=== PATIENT | male | born 1985 | race Caucasian/White ===

== ENCOUNTER → 2019-05-26 07:26 | Outpatient (BNVA) | payer MEDICARE, MEDICAID, SELFPAY | PROVIDERS: Family Provider Internal Medicine; PCP Internal Medicine; Visit Provider Specialist | DX: G43.711 Chronic migraine without aura, intractable, with status migrainosus (principal); G35 Multiple sclerosis; F17.210 Nicotine dependence, cigarettes, uncomplicated | CPT/HCPCS: 64615; 99213; J0585 ==

== ENCOUNTER → 2019-06-15 07:40 | Outpatient (BNVA) | payer MEDICARE, MEDICAID, SELFPAY | PROVIDERS: Family Provider Internal Medicine; PCP Internal Medicine; Visit Provider Specialist | DX: G35 Multiple sclerosis (principal); F17.210 Nicotine dependence, cigarettes, uncomplicated | CPT/HCPCS: 96374; 96415; 99213; J1200; J2350; J2930; J7050 ==

== ENCOUNTER 2019-06-19 23:22 | Emergency (ER) | payer MEDICARE, MEDICAID, SELFPAY ==
[2019-06-19 23:23] VITALS: BP 130/76; PULSE 82; RESP 18; TEMP 36.6; O2SAT 97; BMI 19.3
--- NOTE | 2019-06-19 23:54 | ED_ITS ---
Entered by Debora Wagner, acting as scribe for Pravin Traore DO Jun 19, 2019 23:22 HPI - Chest Pain General: Chief Complaint: General Medical Stated Complaint: CHEST PAIN Time Seen by Provider: 06/19/19 23:45 History of Present Illness: HPI narrative: 34 yo m came to the er [facility] for chest pain. Onset was today. Pt states that his right side is hurting, hurts when he coughs. Pt states that the pain is under his shoulder blade and rib cage. Pt states that he is having trouble breathing when he exhales that it hurts. Pt states that when you press on the location at where he hurts it doesnt hurt but when he moves that is when it hurts. 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) Timing of current episode: constant Prior episodes: No Onset: during exertion Pain location: other (under rt shoulder blade) Quality: sharp Relieving factors: nothing Associated symptoms: Reports no associated symptoms; Deny abdominal pain, dyspnea, fever(s), nausea, palpitations or vomiting Treatment prior to arrival: aspirin (325) Risk Factors: Coronary artery disease risk factors: none Thoracic aortic dissection risk factors: none Review of Systems General: Reports: other (negative unless marked) Const: Denies: fever or chills Eyes: Denies: change in vision or blurry vision ENMT: Denies: painful swallowing, swelling of lips/tongue, post nasal drip or facial/sinus pain Card: Reports: chest pain and shortness of breath on exertion; Denies: palpitations, irregular heart rhythm, edema, swelling of feet/ankles or shortness of breath when lying down Resp: Reports: non-productive cough; Denies: shortness of breath, productive cough or wheezing GI: Denies: abdominal pain, nausea, vomiting, rectal pain, blood in stool or black tarry stool : Denies: difficulty urinating, painful urination, urinary frequency, urinary urgency or blood in urine Musc: Denies: neck pain, back pain, redness or joint warmth Skin/Breast: Denies: rash, itching or redness Neuro: Denies: headache, dizziness or vertigo Psych: Denies: anxiety PFSH ED PFSH: Social History Smoking and tobacco status: current every day smoker cigarettes Packs smoked per day: 1 Smoking risk assessment/counseling performed?: Yes Alcohol intake: current Alcohol intake frequency: holidays/special occasions only History of recent travel: No Physical Exam Const: GENERAL APPEARANCE: well developed ORIENTATION/CONSCIOUSNESS: Yes oriented to person, Yes oriented to place and Yes oriented to time HENMT: COMMON NORMALS: normocephalic, external ears normal and external nose normal HEAD & SCALP: normocephalic; no scalp tenderness FACE & SINUS: normal facial exam NOSE: external nose normal and no nasal discharge EXTERNAL EAR: Yes external ears normal MOUTH: tongue normal Eye: COMMON NORMALS: PERRL, EOMs intact bilaterally and conjunctivae normal EYELID: eyelids normal CONJUNCTIVA: Yes conjunctivae normal PUPIL: Yes PERRL Neck/C-Spine: COMMON NORMALS: full ROM GENERAL: No tracheal deviation Chest: COMMONS NORMALS: inspection of chest normal CHEST: Yes tenderness Resp: COMMON NORMALS: clear to auscultation bilaterally EFFORT & INSPECTION: No tachypneic, No respiratory distress, No retractions, No uses accessory muscles and No tracheal deviation AUSCULTATION: clear to auscultation bilaterally, no rhonchi, no wheezes and lung sounds not diminished Cardio: COMMON NORMALS: regular rate and regular rhythm RATE: regular rate RHYTHM: regular rhythm HEART SOUNDS: no murmurs PERIPHERAL PULSES: radial pulses present GI: INSPECTION: No abdominal distension AUSCULTATION: No hyperactive bowel sounds and No hypoactive bowel sounds PALPATION: No guarding and No rigid PERCUSSION: no dullness to percussion and no tympanic to percussion : COMMON NORMALS: Yes no CVA tenderness BLADDER/KIDNEY EXAM: Yes no CVA tenderness Back/Pelvis: COMMON NORMALS: no CVA tenderness Neuro: SENSORIUM/ORIENTATION: Yes oriented to person, Yes oriented to place and Yes oriented to time Psych: COMMON NORMALS: mental status grossly normal Skin: COMMON NORMALS: no rashes or lesions noted GENERAL SKIN EXAM: no rashes or lesions noted Course Vital Signs: Vital signs: Vital Signs Temperature 98 F 06/19/19 23:23 Pulse Rate 88 06/20/19 00:39 Respiratory Rate 16 06/20/19 00:39 Blood Pressure 130/76 06/20/19 00:39 Pulse Oximetry 99 06/20/19 00:39 MDM - Chest Pain MDM Narrative: Medical decision making narrative: 34-year-old male with multiple sclerosis. He presents with normal vitals, heart rate of 65, saturations of 98%. He has pleuritic right-sided chest pain that is somewhat reproducible on exam. It is reproduced by deep breath. His chest x-ray is negative for infiltrate, or pneumothorax, etc. His white cell count is 8.7. Troponin is negative. EKG shows a sinus rhythm with sinus arrhythmia, mild right axis deviation, and no acute ST change. Lab Data: Labs: Lab Results 06/19/19 06/19/19 06/19/19 Range/Units 23:15 23:15 23:15 WBC 8.7 (4.0-10.0) 10^3/ uL RBC 5.44 H (4.1-5.3) 10^6/u L Hgb 16.4 (11.7-16.6) g/dL Hct 47.9 (42.0-52.0) % MCV 88.1 (80-94) fL MCH 30.1 (28.0-34.0) pg MCHC 34.2 (30.0-36.0) g/dL RDW 11.9 L (12.1-15.1) % Plt Count 264 (130-400) 10^3/c mm MPV 11.0 H (7.4-10.4) fL Neut % (Auto) 52.9 % Lymph % (Auto) 32.5 % [place] % (Auto) 9.9 % Eos % (Auto) 4.1 % Baso % (Auto) 0.3 % Neut # (Auto) 4.6 (1.8-7.7) 10^3/u L Lymph # (Auto) 2.8 (0.8-4.8) 10^3/u L [place] # (Auto) 0.9 (0.2-0.9) 10^3/u L Eos # (Auto) 0.4 (0.0-0.8) 10^3/u L Baso # (Auto) 0.0 (0.0-0.1) 10^3/u L Nucleated RBC % (a uto) 0 % Nucleated RBCs # 0.0 /100WBC Sodium 138 (136-145) mmol/L Potassium 4.0 (3.5-5.1) mmol/L Chloride 99 (98-107) mmol/L Carbon Dioxide 28 (22-29) mmol/L Anion Gap 15.0 (5-19) BUN 9 (6-20) mg/dL Creatinine 0.9 (0.7-1.2) mg/dL GFR Calculation 95.5 (90-130) mL/min Glucose 90 (65-115) mg/dL Calcium 10.2 (8.5-10.5) mg/dL Total Bilirubin 0.2 (0.15-1.2) mg/dL AST 17 (0-40) U/L ALT 13 (0-41) U/L Alkaline Phosphata se 112 (40-130) IU/L Troponin T Baselin e 6 (0-15) ng/mL Total Protein 8.0 (6.6-8.7) g/dL Albumin 4.0 (3.5-5.2) g/dL Globulin 4.0 (1.3-4.6) g/dL Discharge Plan Discharge Prescriptions: No Action cholecalciferol (vitamin D3) 2,000 unit tablet 2,000 unit PO QDAY RF: 0 nortriptyline 25 mg capsule 25 mg PO QDAY RF: 0 venlafaxine [Effexor XR] 75 mg capsule,extended release 24hr 75 mg PO QAM RF: 0 promethazine 25 mg tablet 25 mg PO Q6H PRNRF: 0 glatiramer [Glatopa] 20 mg/mL syringe 20 mg SUBCUT QDAY RF: 0 albuterol sulfate [Ventolin HFA] 90 mcg/actuation HFA aerosol inhaler 2 puff INHALATION Q6H PRNRF: 0 Ocrevus 30 mg/mL solution 300 mg IVP ONCE Qty: 1 RF: 0 Coding Level of Care Code ED Trailer Technician for Chg Fwd The documentation recorded by the Bernard bucio Stephanie Lyn, accurately reflects the service I personally performed and the decisions made by León bruno Jeremy John, DO Jun 19, 2019 23:22
--- NOTE | 2019-06-20 00:13 | XR_ITS ---
WS: [id number] CHEST XRAY TECHNIQUE: Portable chest. CLINICAL INFORMATION: cp COMPARISON: None. FINDINGS: Heart: Normal cardiac silhouette. Lungs: Lungs are clear. No consolidation or pleural effusion. Calcific granuloma left upper lobe. Bones: Normal visualized bony structures. XR/XR chest 1V portable [id number] IMPRESSION: Normal chest
--- NOTE | 2019-06-20 00:13 | ECG_ITS ---
Measurements Intervals [place] Rate: 79 P: 35 ME: 152 QRS: 150 QRSD: 101 T: 54 QT: 356 QTc: 409 SINUS RHYTHM WITH SINUS ARRHYTHMIA POSSIBLE RIGHT VENTRICULAR HYPERTROPHY [SOME/ALL OF: PROMINENT R IN V1, LATE TR TRANSITION, RAD, ANGELITA, SSS] Compared to ECG 09/03/2014 18:39:10 No significant changes Electronically Signed On 06-20-2019 15:33:00 EXPANDER MACHINE OPERATOR by Magalis Shin M.D. [email or web address]
[2019-06-20 00:33] LABS: Basophils % 0.3 %; Eosinophils # 0.4 10^3/uL (0.0-0.8); Eosinophils % 4.1 %; Hematocrit 47.9 % (42.0-52.0); Hemoglobin 16.4 g/dL (11.7-16.6); Lymphocytes # 2.8 10^3/uL (0.8-4.8); Lymphocytes % 32.5 %; Mean Corpuscular HGB Conc 34.2 g/dL (30.0-36.0); Mean Corpuscular Hemoglobin 30.1 pg (28.0-34.0); Mean Corpuscular Volume 88.1 fL (80-94); Monocytes # 0.9 10^3/uL (0.2-0.9); Monocytes % 9.9 %; Neutrophils # 4.6 10^3/uL (1.8-7.7); Neutrophils % 52.9 %; Nucleated Red Blood Cells % 0 %; Platelet Count 264 10^3/cmm (130-400); Red Blood Count 5.44 10^6/uL (4.1-5.3); Red Cell Distribution Width 11.9 % (12.1-15.1); White Blood Count 8.7 10^3/uL (4.0-10.0)
[2019-06-20] MEDS: ondansetron 2 mg/ML SDV 2 mL 4 MG IVP (00:35)
[2019-06-20 00:36] VITALS: RESP 18; O2SAT 99
[2019-06-20] MEDS: morphine 4 mg/mL SDV 1 mL IVP (00:36)
[2019-06-20 00:39] VITALS: BP 130/76; PULSE 88; RESP 16; O2SAT 99
[2019-06-20 00:40] LABS: Alanine Aminotransferase 13 U/L (0-41); Alkaline Phosphatase 112 IU/L (40-130); Aspartate Amino Transferase 17 U/L (0-40); Blood Urea Nitrogen 9 mg/dL (6-20); Calcium 10.2 mg/dL (8.5-10.5); Carbon Dioxide 28 mmol/L (22-29); Chloride 99 mmol/L (98-107); Glomerular Filtration Rate 95.5 mL/min (90-130); Glucose 90 mg/dL (65-115); Sodium 138 mmol/L (136-145); Total Bilirubin 0.2 mg/dL (0.15-1.2)
[2019-06-20 00:55] LABS: Troponin(5th) Baseline 6 ng/mL (0-15)
[2019-06-20 01:29] VITALS: BP 130/76; PULSE 67; RESP 16; O2SAT 99
[2019-06-20] MEDS: ketorolac 30 mg/mL INJ IVP (01:35)
[2019-06-20 01:40] VITALS: BP 130/76; PULSE 68; RESP 16; O2SAT 98
== END 2019-06-20 01:41 | disposition home or self-care (01) ==
PROVIDERS: Emergency Provider Emergency Medicine; Family Provider Internal Medicine; PCP Internal Medicine
DX: R07.9 Chest pain, unspecified (principal); R05 Cough; R06.02 Shortness of breath; G35 Multiple sclerosis; F17.210 Nicotine dependence, cigarettes, uncomplicated
CPT/HCPCS: 71045; 80053; 84484; 85025; 93005; 96374; 96375; 99283; 99284; J1885; J2270; J2405

== ENCOUNTER 2019-06-29 07:38 | Outpatient (CLI) | payer MEDICARE, MEDICAID, SELFPAY ==
[2019-06-29] MEDS: acetaminophen 500 mg Tablet 1000 MG PO (08:51)
[2019-06-29] MEDS: diphenhydrAMINE 50 mg/mL SDV 1mL 25 MG IVP (08:52)
== END 2019-06-29 07:39 | disposition home or self-care (01) ==
LOC: NSACUTE 07:43
PROVIDERS: Family Provider Internal Medicine; PCP Internal Medicine; Visit Provider Specialist
DX: G35 Multiple sclerosis (principal)
CPT/HCPCS: 96374; 96375; 96413; 96415; J1200; J2350; J2930; J7050

== ENCOUNTER → 2019-08-25 07:41 | Outpatient (BNVA) | payer MEDICARE, MEDICAID, SELFPAY | PROVIDERS: Family Provider Internal Medicine; PCP Internal Medicine; Visit Provider Specialist | DX: G43.711 Chronic migraine without aura, intractable, with status migrainosus (principal); G35 Multiple sclerosis; F17.210 Nicotine dependence, cigarettes, uncomplicated | CPT/HCPCS: 64615; 99213; J0585 ==

== ENCOUNTER → 2019-12-02 07:40 | Outpatient (BNVA) | payer MEDICARE, MEDICAID, SELFPAY | PROVIDERS: Family Provider Internal Medicine; PCP Internal Medicine; Visit Provider Specialist | DX: G43.711 Chronic migraine without aura, intractable, with status migrainosus (principal); G35 Multiple sclerosis | CPT/HCPCS: 64615; 99213; J0585 ==

== ENCOUNTER 2019-12-08 04:23 | Emergency (ER) | payer MEDICARE, MEDICAID, SELFPAY ==
[2019-12-08 04:24] VITALS: BP 113/72; PULSE 60; RESP 16; O2SAT 98
--- NOTE | 2019-12-08 04:26 | W.ED.GENADLT ---
HPI - General Adult General: Stated complaint: TOOTH PAIN Time Seen by Provider: 12/08/19 04:24 Source: patient and EMS Mode of arrival: EMS Limitations: no limitations History of Present Illness: HPI narrative: Dwaine is a 34-year-old male who comes in complaining of dental pain. He overall has very poor dentition but complains of pain in the right inferior most posterior molar. His pain started tonight. He has not had a fever, chills and has not been vomiting. He denies any other complaints or concerns. Review of Systems General: Reports: 10 or more systems reviewed and unremarkable except in HPI and below PFSH ED PFSH: Medical History Chronic migraine without aura, intractable, with status migrainosus Multiple sclerosis Family History Other No pertinent family history Social History Smoking and tobacco status: current every day smoker cigarettes Packs smoked per day: 1 Smoking risk assessment/counseling performed?: Yes Alcohol intake: current Alcohol intake frequency: holidays/special occasions only History of recent travel: No Physical Exam Const: COMMON NORMALS: no acute distress, patient oriented x3, no limitations, healthy appearing and well nourished GENERAL APPEARANCE: cooperative, well kempt and well developed HENMT: COMMON NORMALS: normocephalic, atraumatic, external ears normal, EAC's normal and Normal external nose present HEAD & SCALP: normal to inspection, normocephalic and atraumatic FACE & SINUS: normal facial exam and face symmetric NOSE: Normal external nose present and Normal nares present EXTERNAL EAR: Yes external ears normal EXTERNAL AUDITORY CANAL: EAC's normal MOUTH: Normal oral and palatal mucosa present, lip normal and tongue normal TEETH & GINGIVA: Yes other (No facial or mandibular swelling. No neck pain or swelling.) TEETH & GINGIVA IMAGES: 1. Dental infection, no obvious abscess 2. Eye: COMMON NORMALS: Equal, round and reactive pupils present and conjunctivae normal GENERAL EYE: appearance normal, both eyes and all related structures ALIGNMENT: Yes alignment normal PERIORBITAL: periorbital findings normal EYELID: eyelids normal CONJUNCTIVA: Yes conjunctivae normal SCLERA: sclerae normal PUPIL: Yes Equal, round and reactive pupils present Neck/C-Spine: COMMON NORMALS: full ROM, no lymphadenopathy, supple, no meningeal signs and no JVD GENERAL: Yes normal visual inspection and Yes trachea midline Chest: COMMONS NORMALS: normal inspection of the chest and normal palpation of entire chest wall Resp: COMMON NORMALS: normal respiratory effort, No retractions, No use of accessory muscles and clear to auscultation bilaterally EFFORT & INSPECTION: Yes able to speak in complete sentences and Yes symmetric chest movement AUSCULTATION: clear to auscultation bilaterally, no crackles, no rales, no rhonchi and no wheezes Cardio: COMMON NORMALS: no JVD, regular rate, regular rhythm, S1 normal heart sound present and S2 normal heart sound present RATE: regular rate RHYTHM: regular rhythm HEART SOUNDS: S1 normal heart sound present, S2 normal heart sound present, no click, no gallops, no murmurs, no rubs and abnormal split S2 GI: COMMON NORMALS: Soft to palpation and No hepatosplenomegaly present PALPATION: Yes Soft to palpation, No Tenderness to palpation present (GI), No Guarding due to palpation present (GI), No Rigid due to palpation, Yes No hepatosplenomegaly present, No Hernia present, No Palpable mass present and No Pulsatile mass present : COMMON NORMALS: Yes no CVA tenderness BLADDER/KIDNEY EXAM: Yes no CVA tenderness Back/Pelvis: COMMON NORMALS: no CVA tenderness, thoracic and lumbar spine normal to inspection, no thoracic nor lumbar tenderness and thoraco-lumbar ROM normal Extremity: COMMON NORMALS: normal to inspection, full ROM, capillary refill normal, no joint enlargement, no clubbing, cyanosis or edema and no calf tenderness Neuro: COMMON NORMALS: patient oriented x3, CN's II-XII intact bilaterally, moves all extremities, no focal motor deficits and no sensory deficits noted MENINGEAL SIGNS: Yes no meningeal signs SPEECH: speech normal Psych: COMMON NORMALS: mental status grossly normal, Normal thought process present, cooperative, normal affect, speech normal and activity/motor behavior normal APPEARANCE: Yes well kempt SPEECH: Yes normal speech THOUGHT PROCESS: Normal thought process present Skin: COMMON NORMALS: no rashes or lesions noted, turgor normal, no jaundice, no petechiae and no mottling GENERAL SKIN EXAM: no rashes or lesions noted and turgor normal MDM - General Adult MDM Narrative: Medical decision making narrative: Dwaine is a 34-year-old male who comes in complaining of dental pain. He has obvious dental caries throughout his mouth. The area of maximal tenderness does not appear to have any associated dental abscess or infection. Patient denies any vomiting. I will go ahead and discharge him on Cleocin and with medication for pain. Discharge Plan Discharge Patient Disposition: Home Clinical Impression: Pain due to dental caries Condition: Stable Prescriptions: New Cleocin HCl 150 mg capsule 300 mg PO Q6H 10 Days Qty: 80 RF: 0 ibuprofen 800 mg tablet 800 mg PO TID PRN (Reason: pain) Qty: 30 RF: 0 No Action cholecalciferol (vitamin D3) 2,000 unit tablet 2,000 unit PO QDAY RF: 0 nortriptyline 25 mg capsule 25 mg PO QDAY RF: 0 venlafaxine [Effexor XR] 75 mg capsule,extended release 24hr 75 mg PO QAM RF: 0 promethazine 25 mg tablet 25 mg PO Q6H PRNRF: 0 albuterol sulfate [Ventolin HFA] 90 mcg/actuation HFA aerosol inhaler 2 puff INHALATION Q6H PRNRF: 0 Ocrevus 30 mg/mL solution 300 mg IVP ONCE Qty: 1 RF: 0 Discharge Orders: Discharge Order (Routine); Ordered 12/08/19 Ordered By: Lauren Moran Referrals: Henna Hein MD [Primary Care Provider] - 4-7 days Discharge Diet: Advance as tolerated Discharge Activity: Resume usual activity and Increase activity as tolerated Patient Instructions: Dental Caries (ED), Toothache (ED) Activity Restrictions/Additional Instructions: Please return to the ER immediately for any of the signs or symptoms listed on your discharge instruction sheets, worsening/changing of your symptoms, you are not getting better as quickly as expected, or for ANY other cause or concerns. Contact a local dentist or [facility] [facility] for definitive evaluation and care and management of your dental disease. Coding Level of Care Code ED Pin Game Machine Inspector for Best Reynoso
[2019-12-08 04:36] VITALS: BP 113/72; PULSE 59; RESP 17; O2SAT 98
[2019-12-08] MEDS: acetaminophen 500 mg Tablet 1000 MG PO (04:40)
[2019-12-08] MEDS: clindamycin 150 mg Capsule 300 MG PO (04:41)
[2019-12-08 04:52] VITALS: BP 110/76; PULSE 59; RESP 17; O2SAT 97
== END 2019-12-08 04:53 | disposition home or self-care (01) ==
LOC: ER 04:43
PROVIDERS: Emergency Provider Emergency Medicine; PCP Internal Medicine
DX: K02.9 Dental caries, unspecified (principal); G35 Multiple sclerosis; F17.210 Nicotine dependence, cigarettes, uncomplicated
CPT/HCPCS: 12345; 99281; 99283

== ENCOUNTER 2019-12-19 08:01 | Outpatient (CLI) | payer MEDICARE, MEDICAID, SELFPAY ==
[2019-12-19] MEDS: acetaminophen 500 mg Tablet 1000 MG PO (09:00)
[2019-12-19] MEDS: diphenhydrAMINE 50 mg/mL SDV 1mL 25 MG IVP (09:05)
--- NOTE | 2019-12-19 09:46 | PC.NURSE ---
0945 40 Infusion started. 1015 80 Titrated up 1045 120 Titrated up per orders 1115 140 Titrated up per orders. 1145 160 Titrated up per orders. 1215 200 Titrated up per orders. MAX Rate. 1230 Infusion Completed.
== END 2019-12-19 08:02 | disposition home or self-care (01) ==
LOC: NSACUTE 08:03
PROVIDERS: Family Provider Internal Medicine; PCP Internal Medicine; Visit Provider Specialist
DX: G35 Multiple sclerosis (principal); G43.711 Chronic migraine without aura, intractable, with status migrainosus; F17.210 Nicotine dependence, cigarettes, uncomplicated
CPT/HCPCS: 96365; 96366; 96375; 99213; J1200; J2350; J2930; J7040

== ENCOUNTER → 2020-03-01 08:07 | Outpatient (BNVA) | payer MEDICARE, MEDICAID, SELFPAY | PROVIDERS: PCP Internal Medicine; Visit Provider Specialist | DX: G43.711 Chronic migraine without aura, intractable, with status migrainosus (principal); G35 Multiple sclerosis; F17.210 Nicotine dependence, cigarettes, uncomplicated | CPT/HCPCS: 64615; 99212; J0585 ==

== ENCOUNTER → 2020-05-24 07:55 | Outpatient (BNVA) | payer MEDICARE, MEDICAID, SELFPAY | PROVIDERS: PCP Internal Medicine; Visit Provider Specialist | DX: G43.711 Chronic migraine without aura, intractable, with status migrainosus (principal); G35 Multiple sclerosis; F17.210 Nicotine dependence, cigarettes, uncomplicated | CPT/HCPCS: 64615; 99212; J0585 ==

== ENCOUNTER 2020-07-02 08:19 | Outpatient (CLI) | payer MEDICARE, MEDICAID, SELFPAY ==
[2020-07-02] MEDS: acetaminophen 500 mg Tablet 1000 MG PO (08:40)
[2020-07-02] MEDS: diphenhydrAMINE 50 mg/mL SDV 1mL 12.5 MG IVP (08:59)
== END 2020-07-02 08:20 | disposition home or self-care (01) ==
LOC: NSACUTE 08:24
PROVIDERS: PCP Internal Medicine; Visit Provider Specialist
DX: F17.210 Nicotine dependence, cigarettes, uncomplicated (principal); G35 Multiple sclerosis; G43.711 Chronic migraine without aura, intractable, with status migrainosus
CPT/HCPCS: 96365; 96366; 96375; 99213; J1200; J2350; J2930; J7040

== ENCOUNTER → 2020-08-23 07:48 | Outpatient (BNVA) | payer MEDICARE, MEDICAID, SELFPAY | PROVIDERS: PCP Internal Medicine; Visit Provider Specialist | DX: G43.709 Chronic migraine without aura, not intractable, without status migrainosus (principal); G35 Multiple sclerosis; F17.210 Nicotine dependence, cigarettes, uncomplicated | CPT/HCPCS: 64615; 99213; J0585 ==

== ENCOUNTER → 2020-12-13 08:03 | Outpatient (BNVA) | payer MEDICARE, MEDICAID, SELFPAY | PROVIDERS: PCP Internal Medicine; Visit Provider Specialist | DX: G43.711 Chronic migraine without aura, intractable, with status migrainosus (principal); G35 Multiple sclerosis; F17.210 Nicotine dependence, cigarettes, uncomplicated | CPT/HCPCS: 64615; 99212; 99213; J0585 ==

== ENCOUNTER 2020-12-19 10:01 | Outpatient (CLI) | payer MEDICARE, MEDICAID, SELFPAY ==
[2020-12-19] MEDS: acetaminophen 500 mg Tablet 1000 MG PO (10:35)
[2020-12-19] MEDS: diphenhydrAMINE 50 mg/mL SDV 1mL 25 MG IVP (10:43)
--- NOTE | 2020-12-19 13:00 | PC.NURSE ---
[id number] 03/27/21 Armand olmos [id number] 01/25/22 Krish [id number] 12/26/20
== END 2020-12-19 10:02 | disposition home or self-care (01) ==
LOC: NSACUTE 10:03
PROVIDERS: PCP Internal Medicine; Visit Provider Specialist
DX: G35 Multiple sclerosis (principal)
CPT/HCPCS: 96365; 96366; 96375; 99213; J1200; J2350; J2930; J7040

== ENCOUNTER → 2021-03-14 09:01 | Outpatient (BNVA) | payer MEDICARE, MEDICAID, SELFPAY | PROVIDERS: PCP Internal Medicine; Visit Provider Specialist | DX: G35 Multiple sclerosis (principal); G43.711 Chronic migraine without aura, intractable, with status migrainosus | CPT/HCPCS: 64615; 99213; J0585 ==

== ENCOUNTER → 2021-06-06 08:27 | Outpatient (BNVA) | payer MEDICARE, MEDICAID, SELFPAY | PROVIDERS: PCP Internal Medicine; Visit Provider Specialist | DX: G43.711 Chronic migraine without aura, intractable, with status migrainosus (principal); G35 Multiple sclerosis; F17.210 Nicotine dependence, cigarettes, uncomplicated | CPT/HCPCS: 64615; 99213; J0585 ==

== ENCOUNTER 2021-06-10 10:16 | Outpatient (CLI) | payer MEDICARE, MEDICAID, SELFPAY ==
[2021-06-10 10:38] VITALS: BP 104/66; PULSE 91; RESP 18; TEMP 36.8; O2SAT 98
[2021-06-10] MEDS: sodium chloride 0.9% 250 ML 50 ML IV (10:59)
[2021-06-10] MEDS: acetaminophen 500 mg Tablet 1000 MG PO (10:59)
[2021-06-10] MEDS: diphenhydrAMINE 50 mg/mL SDV 1mL 25 MG IV (11:00)
[2021-06-10 11:23] VITALS: BP 113/80; PULSE 75; RESP 16; TEMP 36.7; O2SAT 99
[2021-06-10 11:35] VITALS: BP 109/74; PULSE 74; RESP 16; TEMP 36.8; O2SAT 98
[2021-06-10 12:00] VITALS: BP 111/75; PULSE 76; RESP 16; TEMP 36.9; O2SAT 99
[2021-06-10 13:51] VITALS: BP 108/75; PULSE 93; RESP 18; TEMP 37.2; O2SAT 97
== END 2021-06-10 10:17 | disposition home or self-care (01) ==
PROVIDERS: PCP Internal Medicine; Referring Provider Specialist; Visit Provider Specialist
DX: G35 Multiple sclerosis (principal)
CPT/HCPCS: 96365; 96366; 96375; J1200; J2350; J2930; J7040; J7050

== ENCOUNTER → 2021-08-29 07:56 | Outpatient (BNVA) | payer MEDICARE, MEDICAID, SELFPAY | PROVIDERS: PCP Internal Medicine; Visit Provider Specialist | DX: G35 Multiple sclerosis (principal); G43.711 Chronic migraine without aura, intractable, with status migrainosus; F17.210 Nicotine dependence, cigarettes, uncomplicated | CPT/HCPCS: 64615; 99212; 99213; J0585 ==

== ENCOUNTER → 2021-11-21 08:08 | Outpatient (BNVA) | payer MEDICARE, MEDICAID, SELFPAY | PROVIDERS: PCP Internal Medicine; Visit Provider Specialist | DX: G43.711 Chronic migraine without aura, intractable, with status migrainosus (principal); G35 Multiple sclerosis | CPT/HCPCS: 64615; 99212; 99213; J0585 ==

== ENCOUNTER 2021-12-18 09:28 | Outpatient (CLI) | payer MEDICARE, MEDICAID, SELFPAY ==
[2021-12-18 09:53] VITALS: BP 86/66; PULSE 88; RESP 18; TEMP 36.6; O2SAT 99
[2021-12-18] MEDS: sodium chloride 0.9% 250 ML 50 ML IV (10:27)
[2021-12-18] MEDS: acetaminophen 500 mg Tablet 1000 MG PO (10:28)
[2021-12-18] MEDS: diphenhydrAMINE 50 mg/mL SDV 1mL 25 MG IVP (10:29)
[2021-12-18 11:08] VITALS: BP 102/70; PULSE 71; RESP 18; TEMP 36.6; O2SAT 97
[2021-12-18 11:39] VITALS: BP 97/66; PULSE 74; RESP 18; TEMP 36.4; O2SAT 95
[2021-12-18 12:37] VITALS: BP 99/73; PULSE 69; RESP 18; TEMP 36.5; O2SAT 98
[2021-12-18 13:04] VITALS: BP 106/75; PULSE 75; RESP 18; TEMP 36.3; O2SAT 99
== END 2021-12-18 09:29 | disposition home or self-care (01) ==
PROVIDERS: PCP Internal Medicine; Visit Provider Specialist
DX: G35 Multiple sclerosis (principal)
CPT/HCPCS: 96365; 96366; 96375; J1200; J2350; J2930; J7040; J7050

== ENCOUNTER → 2022-02-13 09:57 | Outpatient (BNVA) | payer MEDICARE, MEDICAID, SELFPAY | PROVIDERS: PCP Internal Medicine; Visit Provider Specialist | DX: G43.711 Chronic migraine without aura, intractable, with status migrainosus (principal); G35 Multiple sclerosis | CPT/HCPCS: 64615; 99212; J0585 ==

== ENCOUNTER → 2022-05-08 07:36 | Outpatient (BNVA) | payer MEDICARE, MEDICAID, SELFPAY | PROVIDERS: PCP Internal Medicine; Visit Provider Specialist | DX: G43.711 Chronic migraine without aura, intractable, with status migrainosus (principal); G35 Multiple sclerosis | CPT/HCPCS: 64615; 99212; J0585 ==

== ENCOUNTER 2022-07-31 08:44 | Oncology outpatient (recurring) (ONCR) | payer MEDICARE, MEDICAID, SELFPAY ==
[2022-07-31 09:00] VITALS: BP 106/74; PULSE 80; RESP 16; TEMP 36.4; O2SAT 99
[2022-07-31] MEDS: sodium chloride 0.9% 250 ML 50 ML IV (09:13)
[2022-07-31] MEDS: acetaminophen 500 mg Tablet 1000 MG PO (09:14)
[2022-07-31] MEDS: diphenhydrAMINE 50 mg/mL SDV 1mL 25 MG IVP (09:16)
[2022-07-31] MEDS: ocrelizumab 600 MG in sodium chloride 0.9% 500 ML 100 MG IV (09:42)
[2022-07-31 10:21] VITALS: BP 105/64; PULSE 69; RESP 18; TEMP 36.5; O2SAT 99
[2022-07-31 10:45] VITALS: BP 109/72; PULSE 71; RESP 16; TEMP 36.6; O2SAT 98
[2022-07-31 12:11] VITALS: BP 109/70; PULSE 75; RESP 16; TEMP 36.6; O2SAT 99
== END 2022-08-07 16:42 | disposition home or self-care (01) ==
PROVIDERS: PCP Internal Medicine; Visit Provider Specialist
DX: G35 Multiple sclerosis (principal); G43.711 Chronic migraine without aura, intractable, with status migrainosus; Z79.899 Other long term (current) drug therapy; F17.210 Nicotine dependence, cigarettes, uncomplicated
CPT/HCPCS: 64615; 96361; 96365; 96366; 96375; 99213; J0585; J1200; J2350; J2930; J7040; J7050

== ENCOUNTER → 2022-11-13 14:38 | Outpatient (BNVA) | payer MEDICARE, MEDICAID, SELFPAY | PROVIDERS: PCP Internal Medicine; Visit Provider Specialist | DX: G35 Multiple sclerosis (principal); G43.711 Chronic migraine without aura, intractable, with status migrainosus | CPT/HCPCS: 64615; 99212; J0585 ==

== ENCOUNTER 2023-02-09 07:48 | Oncology outpatient (recurring) (ONCR) | payer MEDICARE, MEDICAID, SELFPAY ==
[2023-02-09] VITALS (8 sets, daily range): BP systolic 107–115; BP diastolic 69–77; PULSE 66–92; RESP 16–17; TEMP 36.1–36.7; O2SAT 98–99; BMI 20.3
[2023-02-09] MEDS: sodium chloride 0.9% 250 ML 75 ML IV (08:29)
[2023-02-09] MEDS: acetaminophen 500 mg Tablet 1000 MG PO (08:29)
[2023-02-09] MEDS: diphenhydrAMINE 50 mg/mL SDV 1mL 25 MG IVP ×2 (08:33→10:04)
[2023-02-09] MEDS: methylPREDNISolone sod succ 125 mg SDV IV (08:35)
[2023-02-09] MEDS: ocrelizumab 600 MG in sodium chloride 0.9% 500 ML 100 MG IV (09:10)
== END 2023-02-09 23:59 | disposition home or self-care (01) ==
PROVIDERS: PCP Internal Medicine; Visit Provider Specialist
DX: G35 Multiple sclerosis (principal)
CPT/HCPCS: 96375; 96413; 96415; J1200; J2350; J2930; J7040; J7050

== ENCOUNTER 2023-04-28 13:51 | Emergency (ER) | payer MEDICARE, MEDICAID, SELFPAY ==
[2023-04-28 14:50] VITALS: BP 104/71; PULSE 100; RESP 18; TEMP 36.6; O2SAT 99
--- NOTE | 2023-04-28 15:26 | ED_ITS ---
HPI - Ear Problem General: Chief complaint: Ear Stated complaint: ear issue Time Seen by Provider: 04/28/23 15:22 Source: patient Mode of arrival: ambulatory Limitations: no limitations History of Present Illness: Patient is a 37-year-old male presents to ED today with complaint of abscess to the posterior aspect of his right ear lobule. Patient denies any recent injury or piercings. He has not noticed any surrounding redness, swelling, or warmth. MD Complaint: ear pain Location: right ear Duration: constant Severity: mild Relieving factors: nothing Exacerbating factors: nothing Discharge from ear: no Associated symptoms: Reports no associated symptoms and ear or mastoid pain (posterior earlobe R); Denies fever(s), headache(s), neck pain or tinnitus Treatment prior to arrival: none Review of Systems Const: Denies: fever(s), chills, body aches, fatigue or malaise ENMT: Reports: ear or mastoid pain (posterior earlobe R); Denies: ear discharge, change in hearing, tinnitus, disequilibrium, nasal discharge, nasal congestion or sinus pain GI: Denies: nausea or vomiting Musc: Denies: neck pain Neuro: Denies: headache(s) PFSH ED PFSH: Medical History Multiple sclerosis Chronic migraine without aura, intractable, with status migrainosus Family History Other No pertinent family history Social History Smoking and tobacco/nicotine status: current every day tobacco/nicotine user cigarettes Packs smoked per day: 1 Alcohol intake: current Alcohol intake frequency: holidays/special occasions only Substance/Drug Use: never Physical Exam Const: COMMON NORMALS: no acute distress, average body habitus, patient oriented x3, no limitations, alert and well nourished HENMT: COMMON NORMALS: EAC's normal and TM's normal bilaterally FACE & SINUS: normal facial exam, sinuses nontender and face symmetric EXTERNAL EAR: Yes mastoids normal, Yes mastoid abnormal, Yes no periauricular adenopathy and Yes other (small pea sized fluctuant abscess posterior R earlobe) EXTERNAL AUDITORY CANAL: EAC's normal TYMPANIC MEMBRANE: TM's normal bilaterally TEETH & GINGIVA: Yes poor dentition Neuro: COMMON NORMALS: patient oriented x3 SENSORIUM/ORIENTATION: Yes alert Procedures Abscess I/D Site: other (R earlobe) Side (if applicable): right Local Anesthetic: lidocaine 2% Amount of anesthesia used (mL): 1.0 Technique: incised with #11 blade Amount of fluid expressed (mL): 3.0 Irrigation: No Packing used?: plain Course Vital Signs: Vital signs: Vital Signs Temperature 97.5 F L 04/28/23 15:53 Pulse Rate 89 04/28/23 15:53 Respiratory Rate 14 04/28/23 15:53 Blood Pressure 102/72 04/28/23 15:53 Pulse Oximetry 97 04/28/23 15:53 Oxygen Delivery Me thod Room Air 04/28/23 15:53 MDM - Ear Medical Decision Making Abscess was incised and drained with purulent material expressed. Culture obtained. Small amount of packing was placed. Patient will be placed on antibiotics. He can remove packing in 2 to 3 days. Return ED precautions given. Medical Records I reviewed the patient's medical records. No radiology studies performed this visit Discharge Plan Discharge Patient Disposition: Home Clinical Impression: Abscess of right earlobe Condition: Stable Prescriptions: New Bactrim DS 800-160 mg tablet 1 tab PO BID 7 Days Qty: 14 0RF No Action albuterol sulfate [Ventolin HFA] 90 mcg/actuation HFA aerosol inhaler 2 puff INHALATION Q6H PRN (Reason: Shortness Of Breath Or Wheezing) Emgality Syringe 120 mg/mL syringe 240 mg SUBCUT ONCE Qty: 2 0RF Rx Instructions: Loading dose Emgality Syringe 120 mg/mL syringe 120 mg SUBCUT ONCE Qty: 1 6RF cholecalciferol (vitamin D3) 50 mcg (2,000 unit) tablet 2,000 unit PO QDAY Qty: 30 11RF Ocrevus 30 mg/mL solution 600 mg IV .[id number] Qty: 20 3RF nortriptyline 25 mg capsule 25 mg PO DAILY Qty: 30 0RF Rx Instructions: Take at bedtime. venlafaxine 75 mg capsule,extended release 24hr See Rx Instructions .ROUTE .COMPLEX Qty: 90 3RF Dose Instruction: TAKE 1 CAPSULE BY MOUTH ONCE DAILY Rx Instructions: TAKE 1 CAPSULE BY MOUTH ONCE DAILY promethazine 25 mg tablet 25 mg PO Q6H PRN (Reason: nausea) Qty: 30 1RF Discharge Orders: Discharge ED (Routine); Ordered 04/28/23 Ordered By: Kori Zuniga Referrals: Henna Hein MD [Primary Care Provider] - Patient Instructions: Abscess (ED), Abscess Incision and Drainage (DC) Activity Restrictions/Additional Instructions: Fill your antibiotics and start them immediately. Attempt to leave packing in for 48 to 72 hours and then you may remove. Monitor for worsening infection such as redness, swelling, fevers, warmth, or any other concerns you may have. Please seek medical reevaluation if these occur. Coding Level of Care Code ED Sludge Control Operator for Best Reynoso
[2023-04-28 15:53] VITALS: BP 102/72; PULSE 89; RESP 14; TEMP 36.4; O2SAT 97
[2023-04-28 15:55] VITALS: BP 102/72; PULSE 89; RESP 14; TEMP 36.4; O2SAT 97
== END 2023-04-28 16:09 | disposition home or self-care (01) ==
PROVIDERS: Emergency Provider Physician Assistant; PCP Internal Medicine
DX: H60.01 Abscess of right external ear (principal); G35 Multiple sclerosis; F17.210 Nicotine dependence, cigarettes, uncomplicated
CPT/HCPCS: 69000; 87070; 87075; 87205; 99283

== ENCOUNTER → 2023-05-28 13:52 | Outpatient (BNVA) | payer MEDICARE, MEDICAID, SELFPAY | PROVIDERS: PCP Internal Medicine; Visit Provider Specialist | DX: G35 Multiple sclerosis (principal); G43.711 Chronic migraine without aura, intractable, with status migrainosus | CPT/HCPCS: 64615; 99212 ==

== ENCOUNTER 2023-08-13 07:33 | Oncology outpatient (recurring) (ONCR) | payer MEDICARE, MEDICAID, SELFPAY ==
[2023-08-13] MEDS: acetaminophen 500 mg Tablet 1000 MG PO (08:41)
[2023-08-13] MEDS: sodium chloride 0.9% (100 ml) 100 ML 75 ML (08:41)
[2023-08-13] MEDS: diphenhydrAMINE 50 mg/mL SDV 1mL 25 MG IVP (08:44)
[2023-08-13] MEDS: methylPREDNISolone sod succ 125 mg/2 mL INJ IVP (08:47)
[2023-08-13] MEDS: ocrelizumab 600 MG in sodium chloride 0.9% 500 ML 100 MG IV (09:10)
[2023-08-13 09:15] VITALS: BP 99/66; PULSE 65; RESP 16; TEMP 36.6; O2SAT 98
[2023-08-13 09:30] VITALS: BP 100/70; PULSE 63; RESP 16; TEMP 36.5; O2SAT 98
[2023-08-13 09:45] VITALS: BP 99/67; PULSE 66; RESP 16; TEMP 36.4; O2SAT 95
[2023-08-13 10:18] VITALS: BP 104/69; PULSE 67; RESP 16; TEMP 36.4; O2SAT 98
[2023-08-13 10:48] VITALS: BP 105/68; PULSE 68; RESP 16; TEMP 36.7; O2SAT 98
[2023-08-13 11:48] VITALS: BP 112/70; PULSE 70; RESP 18; O2SAT 98
== END 2023-08-13 23:59 | disposition home or self-care (01) ==
PROVIDERS: PCP Internal Medicine; Visit Provider Specialist
DX: G35 Multiple sclerosis (principal)
CPT/HCPCS: 96375; 96413; A4222; J1200; J2350; J2919; J7040

== ENCOUNTER → 2023-09-10 09:01 | Outpatient (BNVA) | payer MEDICARE, MEDICAID, SELFPAY | PROVIDERS: PCP Internal Medicine; Visit Provider Specialist | DX: G43.711 Chronic migraine without aura, intractable, with status migrainosus (principal); G35 Multiple sclerosis | CPT/HCPCS: 64615; 99212 ==

== ENCOUNTER → 2023-12-24 09:03 | Outpatient (BNVA) | payer MEDICARE, MEDICAID, SELFPAY | PROVIDERS: PCP Internal Medicine; Visit Provider Specialist | DX: G43.711 Chronic migraine without aura, intractable, with status migrainosus (principal); G35 Multiple sclerosis | CPT/HCPCS: 64615; 99212; J0585 ==

== ENCOUNTER 2024-03-10 08:51 | Oncology outpatient (recurring) (ONCR) | payer MEDICARE, MEDICAID, SELFPAY ==
[2024-03-10 09:11] VITALS: BP 104/64; PULSE 85; RESP 16; TEMP 36.6; O2SAT 98
[2024-03-10] MEDS: acetaminophen 500 mg Tablet 1000 MG PO (09:59)
[2024-03-10] MEDS: sodium chloride 0.9% 250 ML 75 ML IV (09:59)
[2024-03-10] MEDS: diphenhydrAMINE 50 mg/mL SDV 1mL 25 MG IVP (10:00)
[2024-03-10] MEDS: methylPREDNISolone sod succ 125 mg/2 mL INJ IVP (10:03)
[2024-03-10] MEDS: ocrelizumab 600 MG in sodium chloride 0.9% 500 ML 100 MG IV (10:20)
[2024-03-10 10:23] VITALS: BP 109/77; PULSE 79; RESP 18; TEMP 35.9; O2SAT 97
[2024-03-10 10:42] VITALS: BP 98/69; PULSE 79; RESP 18; TEMP 35.9; O2SAT 98
[2024-03-10 10:56] VITALS: BP 105/72; PULSE 71; RESP 18; TEMP 36.2; O2SAT 98
[2024-03-10 17:11] VITALS: BP 102/69; PULSE 78; RESP 18; TEMP 36.1; O2SAT 98
== END 2024-03-10 23:59 | disposition home or self-care (01) ==
PROVIDERS: PCP Internal Medicine; Visit Provider Specialist
DX: G35 Multiple sclerosis (principal); Z79.899 Other long term (current) drug therapy
CPT/HCPCS: 96375; 96413; 96415; A4222; J1200; J2350; J2919; J7040; J7050

== ENCOUNTER 2024-07-01 16:33 | Emergency (ER) | payer MEDICARE, MEDICAID, SELFPAY ==
[2024-07-01 16:35] VITALS: BP 102/74; PULSE 65; RESP 15; TEMP 36.7; O2SAT 98; BMI 18.6
--- NOTE | 2024-07-01 16:37 | ED_ITS ---
Documented by User: El Hernandez DO 07/02/24 05:26 HPI - General Adult 2 General: Chief complaint: Weakness Stated complaint: nausea - weakness - diarrhea Time Seen by Provider: 07/01/24 16:35 History of Present Illness: 39-year-old male who presents emergency room with nausea vomiting and diarrhea he states been going on for a week. Patient reports he has a history of MS he has some dizziness when he stands. He denies any fever sweats chills shortness of breath denies abdominal pain or chest pain no hematochezia melena hematemesis or coffee-ground emesis. He denies any other major medical issues. He is on nortriptyline and venlafaxine no other medications or treatments at this time. He denies regular use of alcohol or drugs. He does smoke cigarettes. Associated symptoms: Reports nausea and vomiting; Deny chest pain, dyspnea or rash Related Data Previous Rx's ?Medication ?Instructions ?Recorded nortriptyline 25 mg capsule 25 mg PO DAILY #30 caps venlafaxine 75 mg capsule,extended See Rx Instructions .Route 07/08/23 release 24 hr .COMPLEX #90 caps Allergies Allergy/AdvReac Type Severity Reaction Status Date / Time Interferons Allergy Unknown Verified 12/24/23 08:36 Review of Systems 2 Const: Reports: fatigue; Denies: fever(s) or chills Card: Denies: chest pain Resp: Denies: dyspnea GI: Reports: nausea, vomiting and diarrhea; Denies: abdominal pain : Denies: dysuria, urinary frequency or urinary urgency Musc: Denies: neck pain or back pain Skin/Breast: Denies: rash REPLACED BY [facility] ED 2 PFSH: Medical History (Updated 07/01/24 @ 19:08 by Jamar Rendon DO) Multiple sclerosis Chronic migraine without aura, intractable, with status migrainosus Family History Other No pertinent family history Social History Smoking and tobacco/nicotine status: heavy tobacco/nicotine user (1 ppd) cigarettes Packs smoked per day: 1 Alcohol intake: current Alcohol intake frequency: holidays/special occasions only Substance/Drug Use: never Physical Exam 2 Const: GENERAL APPEARANCE: cooperative ORIENTATION/CONSCIOUSNESS: Yes awake, Yes oriented to person, Yes oriented to place and Yes oriented to time HENMT: COMMON NORMALS: normocephalic, atraumatic and hearing grossly normal bilaterally HEAD & SCALP: normocephalic and atraumatic Resp: COMMON NORMALS: normal respiratory effort, No retractions, No use of accessory muscles and clear to auscultation bilaterally AUSCULTATION: clear to auscultation bilaterally Cardio: COMMON NORMALS: regular rate, regular rhythm and No murmurs present (Cardio) RATE: regular rate RHYTHM: regular rhythm GI: COMMON NORMALS: Soft to palpation and No hepatosplenomegaly present A USCULTATION: Yes normoactive bowel sounds PALPATION: Yes Soft to palpation, No Tenderness to palpation present (GI), No Guarding due to palpation present (GI) and Yes No hepatosplenomegaly present Extremity: COMMON NORMALS: normal to inspection, capillary refill normal, no clubbing, cyanosis or edema, no calf tenderness and no pedal edema Neuro: SENSORIUM/ORIENTATION: Yes oriented to person, Yes oriented to place and Yes oriented to time Skin: COMMON NORMALS: no rashes or lesions noted GENERAL SKIN EXAM: no rashes or lesions noted Course 2 Vital Signs: Vital signs: Vital Signs Temperature 98.1 F 07/01/24 16:35 Pulse Rate 73 07/01/24 19:13 Respiratory Rate 15 07/01/24 16:35 Blood Pressure 115/79 07/01/24 19:13 Pulse Oximetry 97 07/01/24 19:13 Oxygen Delivery Me thod Room Air 07/01/24 16:35 [facility] - General Adult Medical Decision Making Care signed out to Dr. Rendon at change of shift. See final notes for diagnosis and disposition. Lab Data 07/01/24 16:19 07/01/24 16:19 Radiology Impressions Chest X-Ray 07/01/24 16:40 IMPRESSION: No acute findings. Laboratory Results WBC 5.01 10^3/uL (3.29-11.43) 07/01/24 16:19 RBC 5.35 10^6/uL (3.85-5.65) 07/01/24 16:19 Hgb 16.20 g/dL (11.27-16.99) 07/01/24 16:19 Hct 46.2 % (37-53) 07/01/24 16:19 MCV 86.4 fl (82-101) 07/01/24 16:19 MCH 30.3 pg (27-33) 07/01/24 16:19 MCHC 35.1 g/dL (30-55) 07/01/24 16:19 RDW 12.6 % (12.1-15.1) 07/01/24 16:19 Plt Count 175 10^3/cmm (157-399) 07/01/24 16:19 MPV 10.2 fL (7.4-10.4) 07/01/24 16:19 Neut % (Auto) 79.0 % 07/01/24 16:19 Lymph % (Auto) 11.2 % 07/01/24 16:19 Bulloch % (Auto) 9.2 % 07/01/24 16:19 Eos % (Auto) 0.0 % 07/01/24 16:19 Baso % (Auto) 0.2 % 07/01/24 16:19 Neut # (Auto) 3.96 10^3/uL (1.8-7.7) 07/01/24 16:19 Lymph # (Auto) 0.6 10^3/uL (0.8-4.8) L 07/01/24 16:19 Bulloch # (Auto) 0.5 10^3/uL (0.2-0.9) 07/01/24 16:19 Eos # (Auto) 0.0 10^3/uL (0.0-0.8) 07/01/24 16:19 Baso # (Auto) 0.0 10^3/uL (0.0-0.1) 07/01/24 16:19 Nucleated RBC % (auto) 0 % 07/01/24 16:19 Nucleated RBCs # 0.0 /100WBC 07/01/24 16:19 Sodium 134 mmol/L (136-145) L 07/01/24 16:19 Potassium 3.6 mmol/L (3.5-5.1) 07/01/24 16:19 Chloride 97 mmol/L (98-107) L 07/01/24 16:19 Carbon Dioxide 26 mmol/L (22-29) 07/01/24 16:19 Anion Gap 14.6 (5-19) 07/01/24 16:19 BUN 13 mg/dL (6-20) 07/01/24 16:19 Creatinine 0.8 mg/dL (0.7-1.2) 07/01/24 16:19 GFR Calculation 106.5 mL/min (90-130) 07/01/24 16:19 Glucose 100 mg/dL (65-115) 07/01/24 16:19 Calculated Osmolality 278 mOsm/kg (285-295) L 07/01/24 16:19 Calcium 8.3 mg/dL (8.5-10.5) L 07/01/24 16:19 Total Bilirubin 0.3 mg/dL (0.15-1.2) 07/01/24 16:19 AST 29 U/L (0-40) 07/01/24 16:19 ALT 14 U/L (0-41) 07/01/24 16:19 Alkaline Phosphatase 80 U/L (40-130) 07/01/24 16:19 Total Protein 5.9 g/dL (6.6-8.7) L 07/01/24 16:19 Albumin 3.6 g/dL (3.5-5.2) 07/01/24 16:19 Globulin 2.3 g/dL (1.3-4.6) 07/01/24 16:19 Urine Color Yellow (Yellow) 07/01/24 17:36 Urine Appearance Clear (CLEAR) 07/01/24 17:36 Urine pH 6.0 (5-7) 07/01/24 17:36 Ur Specific Ford 1.026 (1.005-1.030) 07/01/24 17:36 Urine Protein 1+ (Negative) A 07/01/24 17:36 Urine Glucose (UA) Negative (Normal) 07/01/24 17:36 Urine Ketones 2+ (Negative) H 07/01/24 17:36 Urine Blood Negative (Negative) 07/01/24 17:36 Urine Nitrate Negative (Negative) 07/01/24 17:36 Urine Bilirubin Negative (Negative) 07/01/24 17:36 Urine Urobilinogen 1.0 mg/dL (Negative) 07/01/24 17:36 Ur Leukocyte Esterase Negative (Negative) 07/01/24 17:36 Urine RBC 0-2 /hpf (0-2) 07/01/24 17:36 Urine WBC 0-5 /hpf (0-5) 07/01/24 17:36 Ur Squamous Epith Cells 0-5 /hpf (0-5) 07/01/24 17:36 Amorphous Sediment 1+ /hpf 07/01/24 17:36 Urine Bacteria None seen /hpf (NONE) 07/01/24 17:36 Hyaline Casts 8.26 /lpf 07/01/24 17:36 Urine Mucus 1+ /hpf 07/01/24 17:36 Influenza A (PCR) Positive (Negative) 07/01/24 17:45 Influenza Type B (PCR) Negative (Negative) 07/01/24 17:45 RSV (PCR) Negative (Negative) 07/01/24 17:45 SARS-CoV-2 (PCR) Negative (Negative) 07/01/24 17:45 Discharge Plan Discharge Patient Disposition: Home Clinical Impression: Influenza A, Gastroenteritis Condition: Stable Prescriptions: No Action nortriptyline 25 mg capsule 25 mg PO DAILY Qty: 30 0RF Rx Instructions: Take at bedtime. venlafaxine 75 mg capsule,extended release 24hr See Rx Instructions .ROUTE .COMPLEX Qty: 90 3RF Dose Instruction: TAKE 1 CAPSULE BY MOUTH ONCE DAILY Rx Instructions: TAKE 1 CAPSULE BY MOUTH ONCE DAILY Discharge Orders: Discharge ED (Routine); Ordered 07/01/24 Ordered By: Jamar Rendon Referrals: Henna Hein MD [Primary Care Provider] - 1 week Patient Instructions: Influenza (ED), Gastroenteritis (ED) Activity Restrictions/Additional Instructions: Thank you for choosing [facility] for your healthcare needs today. Please realize that you were seen in the emergency department and that we are providing you with an emergency medical screening exam and this may not be a complete and all exclusive of all testing and/or medical workup we may need to determine your element or severity of your illness. It is very important that you follow-up as instructed with your primary care provider or specialist for the additional evaluation and to discuss your medical treatment plan. You may return to the emergency department should you have concerns or if your condition changes or worsens in any way. Print Language: Macanese Coding Level of Care Code ED Assistant Superintendent For Curriculum for Chg Fwd Documented by User: Jamar Rendon DO 07/01/24 19:08 HPI - General Adult 2 General: Chief complaint: Weakness Stated complaint: nausea - weakness - diarrhea Time Seen by Provider: 07/01/24 16:35 Related Data Previous Rx's ?Medication ?Instructions ?Recorded nortriptyline 25 mg capsule 25 mg PO DAILY #30 caps venlafaxine 75 mg capsule,extended See Rx Instructions .Route 07/08/23 release 24 hr .COMPLEX #90 caps Allergies Allergy/AdvReac Type Severity Reaction Status Date / Time Interferons Allergy Unknown Verified 12/24/23 08:36 REPLACED BY [facility] ED 2 PFSH: Medical History (Updated 07/01/24 @ 19:08 by Jamar Rendon DO) Multiple sclerosis Chronic migraine without aura, intractable, with status migrainosus Family History Other No pertinent family history Social History Smoking and tobacco/nicotine status: heavy tobacco/nicotine user (1 ppd) cigarettes Packs smoked per day: 1 Alcohol intake: current Alcohol intake frequency: holidays/special occasions only Substance/Drug Use: never Course 2 Vital Signs: Vital signs: Vital Signs Temperature 98.1 F 07/01/24 16:35 Pulse Rate 73 07/01/24 19:13 Respiratory Rate 15 07/01/24 16:35 Blood Pressure 115/79 07/01/24 19:13 Pulse Oximetry 97 07/01/24 19:13 Oxygen Delivery Va thod Room Air 07/01/24 16:35 MDM - General Adult Medical Decision Making Care signed out to Dr. Rendon at change of shift. See final notes for diagnosis and disposition. Care transferred over to in at shift change, lab work was reviewed, patient is influenza A positive, these results were discussed with the patient. Patient will be discharged home. Lab Data 07/01/24 16:19 07/01/24 16:19 Radiology Impressions Chest X-Ray 07/01/24 16:40 IMPRESSION: No acute findings. Laboratory Results WBC 5.01 10^3/uL (3.29-11.43) 07/01/24 16:19 RBC 5.35 10^6/uL (3.85-5.65) 07/01/24 16:19 Hgb 16.20 g/dL (11.27-16.99) 07/01/24 16:19 Hct 46.2 % (37-53) 07/01/24 16:19 MCV 86.4 fl (82-101) 07/01/24 16:19 MCH 30.3 pg (27-33) 07/01/24 16:19 MCHC 35.1 g/dL (30-55) 07/01/24 16:19 RDW 12.6 % (12.1-15.1) 07/01/24 16:19 Plt Count 175 10^3/cmm (157-399) 07/01/24 16:19 MPV 10.2 fL (7.4-10.4) 07/01/24 16:19 Neut % (Auto) 79.0 % 07/01/24 16:19 Lymph % (Auto) 11.2 % 07/01/24 16:19 Bulloch % (Auto) 9.2 % 07/01/24 16:19 Eos % (Auto) 0.0 % 07/01/24 16:19 Baso % (Auto) 0.2 % 07/01/24 16:19 Neut # (Auto) 3.96 10^3/uL (1.8-7.7) 07/01/24 16:19 Lymph # (Auto) 0.6 10^3/uL (0.8-4.8) L 07/01/24 16:19 Bulloch # (Auto) 0.5 10^3/uL (0.2-0.9) 07/01/24 16:19 Eos # (Auto) 0.0 10^3/uL (0.0-0.8) 07/01/24 16:19 Baso # (Auto) 0.0 10^3/uL (0.0-0.1) 07/01/24 16:19 Nucleated RBC % (auto) 0 % 07/01/24 16:19 Nucleated RBCs # 0.0 /100WBC 07/01/24 16:19 Sodium 134 mmol/L (136-145) L 07/01/24 16:19 Potassium 3.6 mmol/L (3.5-5.1) 07/01/24 16:19 Chloride 97 mmol/L (98-107) L 07/01/24 16:19 Carbon Dioxide 26 mmol/L (22-29) 07/01/24 16:19 Anion Gap 14.6 (5-19) 07/01/24 16:19 BUN 13 mg/dL (6-20) 07/01/24 16:19 Creatinine 0.8 mg/dL (0.7-1.2) 07/01/24 16:19 GFR Calculation 106.5 mL/min (90-130) 07/01/24 16:19 Glucose 100 mg/dL (65-115) 07/01/24 16:19 Calculated Osmolality 278 mOsm/kg (285-295) L 07/01/24 16:19 Calcium 8.3 mg/dL (8.5-10.5) L 07/01/24 16:19 Total Bilirubin 0.3 mg/dL (0.15-1.2) 07/01/24 16:19 AST 29 U/L (0-40) 07/01/24 16:19 ALT 14 U/L (0-41) 07/01/24 16:19 Alkaline Phosphatase 80 U/L (40-130) 07/01/24 16:19 Total Protein 5.9 g/dL (6.6-8.7) L 07/01/24 16:19 Albumin 3.6 g/dL (3.5-5.2) 07/01/24 16:19 Globulin 2.3 g/dL (1.3-4.6) 07/01/24 16:19 Urine Color Yellow (Yellow) 07/01/24 17:36 Urine Appearance Clear (CLEAR) 07/01/24 17:36 Urine pH 6.0 (5-7) 07/01/24 17:36 Ur Specific Ford 1.026 (1.005-1.030) 07/01/24 17:36 Urine Protein 1+ (Negative) A 07/01/24 17:36 Urine Glucose (UA) Negative (Normal) 07/01/24 17:36 Urine Ketones 2+ (Negative) H 07/01/24 17:36 Urine Blood Negative (Negative) 07/01/24 17:36 Urine Nitrate Negative (Negative) 07/01/24 17:36 Urine Bilirubin Negative (Negative) 07/01/24 17:36 Urine Urobilinogen 1.0 mg/dL (Negative) 07/01/24 17:36 Ur Leukocyte Esterase Negative (Negative) 07/01/24 17:36 Urine RBC 0-2 /hpf (0-2) 07/01/24 17:36 Urine WBC 0-5 /hpf (0-5) 07/01/24 17:36 Ur Squamous Epith Cells 0-5 /hpf (0-5) 07/01/24 17:36 Amorphous Sediment 1+ /hpf 07/01/24 17:36 Urine Bacteria None seen /hpf (NONE) 07/01/24 17:36 Hyaline Casts 8.26 /lpf 07/01/24 17:36 Urine Mucus 1+ /hpf 07/01/24 17:36 Influenza A (PCR) Positive (Negative) 07/01/24 17:45 Influenza Type B (PCR) Negative (Negative) 07/01/24 17:45 RSV (PCR) Negative (Negative) 07/01/24 17:45 SARS-CoV-2 (PCR) Negative (Negative) 07/01/24 17:45 All radiology interpretation(s) finalized by discharge Discharge Plan Discharge Patient Disposition: Home Clinical Impression: Influenza A, Gastroenteritis Condition: Stable Prescriptions: No Action nortriptyline 25 mg capsule 25 mg PO DAILY Qty: 30 0RF Rx Instructions: Take at bedtime. venlafaxine 75 mg capsule,extended release 24hr See Rx Instructions .ROUTE .COMPLEX Qty: 90 3RF Dose Instruction: TAKE 1 CAPSULE BY MOUTH ONCE DAILY Rx Instructions: TAKE 1 CAPSULE BY MOUTH ONCE DAILY Discharge Orders: Discharge ED (Routine); Ordered 07/01/24 Ordered By: Jamar Rendon Referrals: Henna Hein MD [Primary Care Provider] - 1 week Patient Instructions: Influenza (ED), Gastroenteritis (ED) Activity Restrictions/Additional Instructions: Thank you for choosing [facility] for your healthcare needs today. Please realize that you were seen in the emergency department and that we are providing you with an emergency medical screening exam and this may not be a complete and all exclusive of all testing and/or medical workup we may need to determine your element or severity of your illness. It is very important that you follow-up as instructed with your primary care provider or specialist for the additional evaluation and to discuss your medical treatment plan. You may return to the emergency department should you have concerns or if your condition changes or worsens in any way. Print Language: Macanese Coding Level of Care Code ED Assistant Superintendent For Curriculum for Best Reynoso
--- NOTE | 2024-07-01 16:40 | ECG_ITS ---
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 Measurements Intervals [place] Rate: 60 P: 55 ME: 137 QRS: -47 QRSD: 102 T: -11 QT: 390 QTc: 390 Interpretive Statements SINUS RHYTHM INCOMPLETE RIGHT BUNDLE BRANCH BLOCK [90+ ms QRS DURATION, TERMINAL R IN V1/V2, 40+ ms S IN I/aVL/V4/V5/V6] MODERATE VOLTAGE CRITERIA FOR LVH, CONSIDER NORMAL VARIANT [MEETS CRITERIA IN ONE OF: R(aVL), S(V1), R(V5), R(V5/V6)+S(V1)] INFERIOR MYOCARDIAL INFARCTION , OF INDETERMINATE AGE [40+ ms Q WAVE AND/OR ST/T ABNORMALITY IN II/aVF] Compared to ECG 06/20/2019 00:35:43 Incomplete right bundle-branch block now present Myocardial infarct finding now present Sinus arrhythmia no longer present Atrial abnormality no longer present Electronically Signed On 07-02-2024 18:01:13 ADVERTISING WRITER by Mickey Lee M.D. [email or web address]
--- NOTE | 2024-07-01 16:40 | XRR_ITS ---
PROCEDURE INFORMATION: Exam: XR Chest Exam date and time: 07/01/2024 4:44 PM Age: 39 years old Clinical indication: Cough and dyspnea; Additional info: Dyspnea/cough TECHNIQUE: Imaging protocol: Radiologic exam of the chest. Views: 1 view. COMPARISON: CR XR chest 1V portable [id number] 06/20/2019 12:33 AM FINDINGS: Lungs: Unremarkable. No consolidation or mass. Pleural spaces: Unremarkable. No pleural effusion. No pneumothorax. Heart/Mediastinum: Unremarkable. No cardiomegaly. Bones/joints: Unremarkable. XR/XR chest 1V portable [id number] IMPRESSION: No acute findings.
--- NOTE | 2024-07-01 16:43 | PC.PHAR ---
patient states its been a few weeks or more since hes taken his meds
[2024-07-01 17:01] VITALS: BP 125/81; PULSE 60; O2SAT 92
[2024-07-01 17:22] LABS: Basophils % 0.2 %; Hematocrit 46.2 % (37-53); Lymphocytes # 0.6 10^3/uL (0.8-4.8); Lymphocytes % 11.2 %; Mean Corpuscular HGB Conc 35.1 g/dL (30-55); Mean Corpuscular Hemoglobin 30.3 pg (27-33); Mean Corpuscular Volume 86.4 fl (82-101); Mean Platelet Volume 10.2 fL (7.4-10.4); Monocytes # 0.5 10^3/uL (0.2-0.9); Monocytes % 9.2 %; Neutrophils # 3.96 10^3/uL (1.8-7.7); Nucleated Red Blood Cells % 0 %; Platelet Count 175 10^3/cmm (157-399); Red Blood Count 5.35 10^6/uL (3.85-5.65); Red Cell Distribution Width 12.6 % (12.1-15.1); White Blood Count 5.01 10^3/uL (3.29-11.43)
[2024-07-01 17:46] LABS: Alanine Aminotransferase 14 U/L (0-41); Albumin Level 3.6 g/dL (3.5-5.2); Alkaline Phosphatase 80 U/L (40-130); Anion Gap 14.6 (5-19); Aspartate Amino Transferase 29 U/L (0-40); Blood Urea Nitrogen 13 mg/dL (6-20); Calcium 8.3 mg/dL (8.5-10.5); Carbon Dioxide 26 mmol/L (22-29); Chloride 97 mmol/L (98-107); Creatinine Clr Calc Pharmacy 101.3495; Globulin 2.3 g/dL (1.3-4.6); Glomerular Filtration Rate 106.5 mL/min (90-130); Glucose 100 mg/dL (65-115); Osmolality Calculated 278 mOsm/kg (285-295); Potassium 3.6 mmol/L (3.5-5.1); Sodium 134 mmol/L (136-145); Total Bilirubin 0.3 mg/dL (0.15-1.2); Total Protein 5.9 g/dL (6.6-8.7)
[2024-07-01 18:00] VITALS: BP 114/76; PULSE 67; O2SAT 93
[2024-07-01 18:00] LABS: Bilirubin Urine Negative (Negative); Blood Urine Negative (Negative); Glucose Urine UA Negative (Normal); Ketones Urine 2+ (Negative); Leukocyte Esterase Urine Negative (Negative); Nitrate Urine Negative (Negative); Protein Urine 1+ (Negative); Specific Gravity, Urine 1.026 (1.005-1.030); Urine Appearance Clear (CLEAR); Urine Color Yellow (Yellow)
[2024-07-01 18:02] LABS: Add Urine Microscopic? YES; Bacteria Urine None Seen /hpf; Hyaline Casts Urine 8.26 /lpf; RBC Urine 0-2 /hpf (0-2); Squamous Epithelial Cell Urine 0-5 /hpf (0-5); Universal Test for UA Present (0); WBC Urine 0-5 /hpf (0-5)
[2024-07-01 18:12] LABS: Add Urine Culture? No; Amorphous Sediment Urine 1+ /hpf; Mucus Urine 1+ /hpf
[2024-07-01] MEDS: sodium chloride 0.9% 1,000 ML 999 ML IV (18:16)
[2024-07-01] MEDS: ondansetron 2 mg/ML SDV 2 mL 4 MG IVP (18:17)
[2024-07-01 18:37] LABS: Influenza A POSITIVE (Negative); Influenza B NEGATIVE (Negative); Respiratory Syncytial Virus Ce NEGATIVE (Negative); SARS-CoV-2 PCR NEGATIVE (Negative)
[2024-07-01 18:42] VITALS: BP 110/67; PULSE 71; O2SAT 92
[2024-07-01 19:13] VITALS: BP 115/79; PULSE 73; O2SAT 97
== END 2024-07-01 19:43 | disposition home or self-care (01) ==
PROVIDERS: Emergency Provider Family Medicine; PCP Internal Medicine
DX: J10.1 Influenza due to other identified influenza virus with other respiratory manifestations (principal); K52.9 Noninfective gastroenteritis and colitis, unspecified; Z11.52 Encounter for screening for COVID-19; F17.210 Nicotine dependence, cigarettes, uncomplicated
CPT/HCPCS: 71045; 80053; 81001; 85025; 87637; 93005; 96374; 99285; J2405; J7030

== ENCOUNTER 2024-07-04 10:53 | Emergency (ER) | payer MEDICARE, MEDICAID, SELFPAY ==
[2024-07-04 11:09] VITALS: BP 92/61; PULSE 101; RESP 24; TEMP 36.7; O2SAT 99
--- NOTE | 2024-07-04 11:51 | CT_ITS ---
WS: [id number] CT HEAD TECHNIQUE: Noncontrast CT of the head obtained from the skullbase to the vertex. CLINICAL INFORMATION: sepulveda COMPARISON: MRI 2019 DLP: 1005.[address] scans at [facility] use at least one of these dose optimization techniques: automated exposure control; mA and/or kV adjustment per patient size (includes targeted exams where dose is matched to clinical indication); or iterative reconstruction. FINDINGS: No evidence of intracranial hemorrhage or mass effect. Changes of chronic demyelinating disease better visualized on the prior MRI. No hydrocephalus. No evidence of mass or mass effect. Cerebellar tonsillar ectopia. Mucosal thickening in the paranasal sinuses with paranasal sinusitis. Mastoid air cells are well aerated. CT/CT head wo con* [id number] IMPRESSION: 1. No evidence of intracranial hemorrhage or mass effect. 2. Pericallosal and periventricular white matter lesions better evaluated on t he prior MRI compatible with history of demyelinating disease. 3. Paranasal sinusitis. 4. No acute intracranial findings.
--- NOTE | 2024-07-04 11:59 | W.ED.HA ---
HPI - Headache General: Chief Complaint: Headache Stated Complaint: headache Time Seen by Provider: 07/04/24 11:41 Source: patient Mode of arrival: ambulatory Limitations: no limitations History of Present Illness: 39-year-old male with a history of migraines he is tells me has had a headache for 3 to 4 days he told triage it has been intermittent for months he has history of chronic migraines states that headaches are 9 out of 10 he has photophobia and phonophobia denies any fevers denies any worse improved factors. Associated symptoms: Deny chest pain, fever(s), nausea, rash or vomiting Related Data Previous Rx's ?Medication ?Instructions ?Recorded nortriptyline 25 mg capsule 25 mg PO DAILY #30 caps 07/05/20 venlafaxine 75 mg capsule,extended See Rx Instructions .Route 07/08/23 release 24 hr .COMPLEX #90 caps Allergies Allergy/AdvReac Type Severity Reaction Status Date / Time Interferons Allergy Unknown Verified 12/24/23 08:36 Review of Systems Const: Denies: fever(s), chills, body aches or change in appetite ENMT: Denies: throat pain or dental pain Card: Denies: chest pain Resp: Denies: dyspnea GI: Denies: abdominal pain, nausea, vomiting or diarrhea Musc: Denies: neck pain or back pain Skin/Breast: Denies: rash Neuro: Reports: headache(s) [facility] ED PFSH: Medical History (Updated 07/04/24 @ 13:42 by Darron Rosario MD) Multiple sclerosis Chronic migraine without aura, intractable, with status migrainosus Family History Other No pertinent family history Social History Smoking and tobacco/nicotine status: heavy tobacco/nicotine user (1 ppd) cigarettes Packs smoked per day: 1 Alcohol intake: current Alcohol intake frequency: holidays/special occasions only Substance/Drug Use: never Physical Exam Const: COMMON NORMALS: no acute distress, patient oriented x3 and healthy appearing HENMT: COMMON NORMALS: normocephalic and atraumatic HEAD & SCALP: normocephalic and atraumatic Eye: COMMON NORMALS: conjunctivae normal CONJUNCTIVA: Yes conjunctivae normal Neck/C-Spine: COMMON NORMALS: full ROM and supple Chest: COMMONS NORMALS: normal inspection of the chest Resp: COMMON NORMALS: normal respiratory effort Extremity: COMMON NORMALS: normal to inspection and full ROM Neuro: COMMON NORMALS: patient oriented x3, moves all extremities and no focal motor deficits Psych: COMMON NORMALS: mental status grossly normal, Normal thought process present and cooperative THOUGHT PROCESS: Normal thought process present Skin: COMMON NORMALS: no rashes or lesions noted and no wounds GENERAL SKIN EXAM: no rashes or lesions noted Course Vital Signs: Vital signs: Vital Signs Temperature 98.0 F 07/04/24 11:09 Pulse Rate 91 07/04/24 14:01 Respiratory Rate 24 H 07/04/24 11:09 Blood Pressure 104/71 07/04/24 14:01 Pulse Oximetry 94 07/04/24 14:01 Oxygen Delivery Me thod Room Air 07/04/24 11:09 MDM - Headache Medical Decision Making Patient presents here with a migraine headache head CT here is normal he feels improved he is stable for discharge she is follow-up with PCP return if worsening. Medical Records I reviewed the patient's medical records. Lab Data Radiology Impressions Head CT 07/04/24 11:51 IMPRESSION: 1. No evidence of intracranial hemorrhage or mass effect. 2. Pericallosal and periventricular white matter lesions better evaluated on the prior MRI compatible with history of demyelinating disease. 3. Paranasal sinusitis. 4. No acute intracranial findings. All radiology interpretation(s) finalized by discharge Discharge Plan Discharge Patient Disposition: Home Clinical Impression: Migraine Condition: Stable Prescriptions: No Action nortriptyline 25 mg capsule 25 mg PO DAILY Qty: 30 0RF Rx Instructions: Take at bedtime. venlafaxine 75 mg capsule,extended release 24hr See Rx Instructions .ROUTE .COMPLEX Qty: 90 3RF Dose Instruction: TAKE 1 CAPSULE BY MOUTH ONCE DAILY Rx Instructions: TAKE 1 CAPSULE BY MOUTH ONCE DAILY Discharge Orders: Discharge ED (Routine); Ordered 07/04/24 Ordered By: Darron Rosario Referrals: Henna Hein MD [Primary Care Provider] - 4-7 days Discharge Diet: Advance as tolerated Discharge Activity: Resume usual activity Patient Instructions: Migraine Headache (ED) Print Language: Divehi Coding Level of Care Code ED Marking Room Supervisor for Narayang Angeles
[2024-07-04] MEDS: diphenhydrAMINE 50 mg/mL SDV 1mL IVP (12:22)
[2024-07-04] MEDS: ondansetron 2 mg/ML SDV 2 mL 4 MG IVP (12:22)
[2024-07-04] MEDS: metoclopramide 5 mg/mL SDV 2 mL 10 MG IVP (12:22)
[2024-07-04 14:01] VITALS: BP 104/71; PULSE 91; O2SAT 94
== END 2024-07-04 14:02 | disposition home or self-care (01) ==
PROVIDERS: Emergency Provider Emergency Medicine; PCP Internal Medicine
DX: G43.909 Migraine, unspecified, not intractable, without status migrainosus (principal)
CPT/HCPCS: 70450; 96374; 96375; 99285; J1200; J2405; J2765

== ENCOUNTER 2024-07-06 17:39 | Emergency (ER) | payer MEDICARE, MEDICAID, SELFPAY ==
[2024-07-06 17:47] VITALS: BP 86/58; PULSE 98; RESP 14; TEMP 36.9; O2SAT 90
[2024-07-06 18:06] LABS: Basophils % 0.3 %; Hematocrit 44.2 % (37-53); Lymphocytes # 1.5 10^3/uL (0.8-4.8); Mean Corpuscular HGB Conc 34.8 g/dL (30-55); Mean Corpuscular Hemoglobin 30.3 pg (27-33); Mean Corpuscular Volume 86.8 fl (82-101); Mean Platelet Volume 10.1 fL (7.4-10.4); Monocytes # 0.9 10^3/uL (0.2-0.9); Monocytes % 13.9 %; Neutrophils # 4.28 10^3/uL (1.8-7.7); Neutrophils % 63.4 %; Nucleated Red Blood Cells % 0 %; Platelet Count 177 10^3/cmm (157-399); Red Blood Count 5.09 10^6/uL (3.85-5.65); Red Cell Distribution Width 12.8 % (12.1-15.1); White Blood Count 6.76 10^3/uL (3.29-11.43)
[2024-07-06 18:30] LABS: Alanine Aminotransferase 31 U/L (0-41); Albumin Level 3.4 g/dL (3.5-5.2); Alkaline Phosphatase 80 U/L (40-130); Aspartate Amino Transferase 62 U/L (0-40); Blood Urea Nitrogen 11 mg/dL (6-20); Calcium 8.8 mg/dL (8.5-10.5); Carbon Dioxide 30 mmol/L (22-29); Chloride 95 mmol/L (98-107); Creatinine Clr Calc Pharmacy 120.4988; Globulin 3.2 g/dL (1.3-4.6); Glomerular Filtration Rate 106.5 mL/min (90-130); Glucose 107 mg/dL (65-115); Osmolality Calculated 282 mOsm/kg (285-295); Sodium 136 mmol/L (136-145); Total Bilirubin 0.7 mg/dL (0.15-1.2); Total Protein 6.6 g/dL (6.6-8.7)
[2024-07-06 18:39] LABS: Anion Gap 14.5 (5-19); Potassium 3.5 mmol/L (3.5-5.1)
[2024-07-06 20:17] LABS: Amphetamines Screen Urine Negative (Negative); Barbiturates Screen Urine Negative (Negative); Benzodiazepines Screen Urine Negative (Negative); Cocaine Screen Urine Negative (Negative); Opiate Screen Urine Negative (Negative); PCP Screen Urine Negative (Negative); THC Screen Urine Positive (Negative)
[2024-07-06] MEDS: sodium chloride 0.9% 1,000 ML 999 ML IV (20:38)
[2024-07-06] MEDS: ketorolac 60 mg/2 mL INJ 30 MG IVP (20:39)
[2024-07-06] MEDS: dexamethasone 10 mg/mL INJ IVP (20:39)
[2024-07-06] MEDS: diphenhydrAMINE 50 mg/mL SDV 1mL IVP (20:39)
[2024-07-06] MEDS: metoclopramide 5 mg/mL SDV 2 mL 10 MG IVP (20:39)
--- NOTE | 2024-07-06 20:52 | W.ED.HA ---
HPI - Headache General: Chief Complaint: Headache Stated Complaint: Headache x 3 months Time Seen by Provider: 07/06/24 20:19 Source: patient Mode of arrival: ambulatory Limitations: no limitations History of Present Illness: Patient is a 39-year-old male who presents emergency department for the second time in 2 days for continued headache. Headache has reportedly been bothering him for 3 months, he was seen here for the same thing couple days ago and had CT and lab work at that time. Was discharged noting improvement after treatment. Today patient states I am sick and still have a headache. He does follow neurology and has a history of multiple sclerosis. No other symptoms reported at this time. States headache feels exact same. MD elicited complaint: headache and migraine Pertinent past history: migraines and other (MS) Onset (ago): month(s) Onset description: gradually Location: generalized Exacerbating factors: light and noise Relieving factors: nothing Associated symptoms: Deny chest pain, fever(s), lightheadedness, nausea, rash or vomiting Related Data Previous Rx's ?Medication ?Instructions ?Recorded nortriptyline 25 mg capsule 25 mg PO DAILY #30 caps 07/05/20 venlafaxine 75 mg capsule,extended See Rx Instructions .Route 07/08/23 release 24 hr .COMPLEX #90 caps Allergies Allergy/AdvReac Type Severity Reaction Status Date / Time Interferons Allergy Unknown Verified 07/06/24 17:51 Review of Systems General: Reports: 10 or more systems reviewed and unremarkable except in HPI and below Const: Denies: fever(s), chills or fatigue Eyes: Denies: change in vision ENMT: Denies: throat pain, ear or mastoid pain or nasal discharge Card: Denies: chest pain, palpitations, swelling of feet/ankles or lightheadedness Resp: Denies: dyspnea, productive cough or wheezing GI: Denies: abdominal pain, nausea, vomiting, diarrhea or constipation : Denies: flank pain, difficulty urinating, dysuria or urinary frequency Musc: Denies: neck pain, back pain or joint pain Skin/Breast: Denies: rash Neuro: Reports: headache(s); Denies: numbness in extremities or weakness in extremities PFS ED PFSH: Medical History (Updated 07/06/24 @ 20:26 by JOHAN Urrutia) Multiple sclerosis Chronic migraine without aura, intractable, with status migrainosus Family History Other No pertinent family history Social History Smoking and tobacco/nicotine status: heavy tobacco/nicotine user (1 ppd) cigarettes Packs smoked per day: 1 Alcohol intake: current Alcohol intake frequency: holidays/special occasions only Substance/Drug Use: never Physical Exam Const: COMMON NORMALS: no acute distress, patient oriented x3 and no limitations GENERAL APPEARANCE: cooperative, comfortable and well developed ORIENTATION/CONSCIOUSNESS: Yes awake, Yes oriented to person, Yes oriented to place and Yes oriented to time HENMT: COMMON NORMALS: normocephalic, atraumatic and hearing grossly normal bilaterally HEAD & SCALP: normocephalic and atraumatic Eye: COMMON NORMALS: Equal, round and reactive pupils present, EOMs intact bilaterally and conjunctivae normal CONJUNCTIVA: Yes conjunctivae normal PUPIL: Yes Equal, round and reactive pupils present Neck/C-Spine: COMMON NORMALS: full ROM, supple and no JVD Resp: COMMON NORMALS: normal respiratory effort, No retractions, No use of accessory muscles and clear to auscultation bilaterally AUSCULTATION: clear to auscultation bilaterally Cardio: COMMON NORMALS: no JVD, regular rate, regular rhythm, No clicks present (Cardio), No murmurs present (Cardio) and No rub (Cardio) RATE: regular rate RHYTHM: regular rhythm GI: COMMON NORMALS: Normal to inspection, nondistended, normoactive bowel sounds present, Soft to palpation and non-tender AUSCULTATION: Yes normoactive bowel sounds PALPATION: Yes Soft to palpation RECTAL EXAM: Yes deferred Extremity: COMMON NORMALS: normal to inspection, full ROM and capillary refill normal Neuro: COMMON NORMALS: patient oriented x3, CN's II-XII intact bilaterally, moves all extremities, no focal motor deficits and no sensory deficits noted SENSORIUM/ORIENTATION: Yes oriented to person, Yes oriented to place and Yes oriented to time Skin: COMMON NORMALS: no rashes or lesions noted GENERAL SKIN EXAM: no rashes or lesions noted Course Vital Signs: Vital signs: Vital Signs Temperature 98.4 F 07/06/24 17:47 Pulse Rate 98 07/06/24 17:47 Respiratory Rate 14 07/06/24 17:47 Blood Pressure 86/58 07/06/24 17:47 Pulse Oximetry 90 07/06/24 17:47 Oxygen Delivery Me thod Room Air 07/06/24 17:47 MDM - Headache Medical Decision Making Lab work obtained today baseline, he had a head CT 2 days ago that was unremarkable for any acute process. He states nothing is changed since then, so he is treated with medications here and told to follow-up with neurology for further evaluation. Lab Data 07/06/24 17:55 07/06/24 17:55 Laboratory Results WBC 6.76 10^3/uL (3.29-11.43) 07/06/24 17:55 RBC 5.09 10^6/uL (3.85-5.65) 07/06/24 17:55 Hgb 15.40 g/dL (11.27-16.99) 07/06/24 17:55 Hct 44.2 % (37-53) 07/06/24 17:55 MCV 86.8 fl (82-101) 07/06/24 17:55 MCH 30.3 pg (27-33) 07/06/24 17:55 MCHC 34.8 g/dL (30-55) 07/06/24 17:55 RDW 12.8 % (12.1-15.1) 07/06/24 17:55 Plt Count 177 10^3/cmm (157-399) 07/06/24 17:55 MPV 10.1 fL (7.4-10.4) 07/06/24 17:55 Neut % (Auto) 63.4 % 07/06/24 17:55 Lymph % (Auto) 22.0 % 07/06/24 17:55 [place] % (Auto) 13.9 % 07/06/24 17:55 Eos % (Auto) 0.0 % 07/06/24 17:55 Baso % (Auto) 0.3 % 07/06/24 17:55 Neut # (Auto) 4.28 10^3/uL (1.8-7.7) 07/06/24 17:55 Lymph # (Auto) 1.5 10^3/uL (0.8-4.8) 07/06/24 17:55 [place] # (Auto) 0.9 10^3/uL (0.2-0.9) 07/06/24 17:55 Eos # (Auto) 0.0 10^3/uL (0.0-0.8) 07/06/24 17:55 Baso # (Auto) 0.0 10^3/uL (0.0-0.1) 07/06/24 17:55 Nucleated RBC % (auto) 0 % 07/06/24 17:55 Nucleated RBCs # 0.0 /100WBC 07/06/24 17:55 Sodium 136 mmol/L (136-145) 07/06/24 17:55 Potassium 3.5 mmol/L (3.5-5.1) 07/06/24 17:55 Chloride 95 mmol/L (98-107) L 07/06/24 17:55 Carbon Dioxide 30 mmol/L (22-29) H 07/06/24 17:55 Anion Gap 14.5 (5-19) 07/06/24 17:55 BUN 11 mg/dL (6-20) 07/06/24 17:55 Creatinine 0.8 mg/dL (0.7-1.2) 07/06/24 17:55 GFR Calculation 106.5 mL/min (90-130) 07/06/24 17:55 Glucose 107 mg/dL (65-115) 07/06/24 17:55 Calculated Osmolality 282 mOsm/kg (285-295) L 07/06/24 17:55 Calcium 8.8 mg/dL (8.5-10.5) 07/06/24 17:55 Total Bilirubin 0.7 mg/dL (0.15-1.2) 07/06/24 17:55 AST 62 U/L (0-40) H 07/06/24 17:55 ALT 31 U/L (0-41) 07/06/24 17:55 Alkaline Phosphatase 80 U/L (40-130) 07/06/24 17:55 Total Protein 6.6 g/dL (6.6-8.7) 07/06/24 17:55 Albumin 3.4 g/dL (3.5-5.2) L 07/06/24 17:55 Globulin 3.2 g/dL (1.3-4.6) 07/06/24 17:55 Urine Opiates Screen Negative ng/mL (Negative) 07/06/24 19:59 Ur Barbiturates Screen Negative ng/mL (Negative) 07/06/24 19:59 Ur Phencyclidine Scrn Negative ng/mL (Negative) 07/06/24 19:59 Ur Amphetamines Screen Negative ng/mL (Negative) 07/06/24 19:59 U Benzodiazepines Scrn Negative ng/mL (Negative) 07/06/24 19:59 Urine Cocaine Screen Negative ng/mL (Negative) 07/06/24 19:59 U Marijuana (THC) Screen Positive ng/mL (Negative) H 07/06/24 19:59 No radiology studies performed this visit Discharge Plan Discharge Patient Disposition: Home Clinical Impression: Migraine Condition: Stable Prescriptions: No Action nortriptyline 25 mg capsule 25 mg PO DAILY Qty: 30 0RF Rx Instructions: Take at bedtime. venlafaxine 75 mg capsule,extended release 24hr See Rx Instructions .ROUTE .COMPLEX Qty: 90 3RF Dose Instruction: TAKE 1 CAPSULE BY MOUTH ONCE DAILY Rx Instructions: TAKE 1 CAPSULE BY MOUTH ONCE DAILY Discharge Orders: Discharge ED (Routine); Ordered 07/06/24 Ordered By: Cedric Grady Referrals: Henna Hein MD [Primary Care Provider] - Patient Instructions: Migraine Headache (ED) Activity Restrictions/Additional Instructions: Continue taking your home medications. Follow-up with neurology. Drink plenty of fluids. Return with any new or worsening. Please see attached patient instructions. Print Language: Japanese Coding Level of Care Code ED Director Of Perioperative Services for [facility]
[2024-07-06 20:53] VITALS: BP 114/79; O2SAT 98
[2024-07-06 22:52] VITALS: BP 110/72; PULSE 92; O2SAT 96
== END 2024-07-06 22:00 | disposition home or self-care (01) ==
PROVIDERS: Emergency Medicine; Emergency Provider Physician Assistant; PCP Internal Medicine
DX: G43.909 Migraine, unspecified, not intractable, without status migrainosus (principal); F17.210 Nicotine dependence, cigarettes, uncomplicated
CPT/HCPCS: 36415; 80053; 80306; 85025; 96361; 96374; 96375; 99284; J1100; J1200; J1885; J2765; J7030

== ENCOUNTER 2024-10-12 07:40 | Oncology outpatient (recurring) (ONCR) | payer MEDICARE, MEDICAID, SELFPAY ==
[2024-10-12] MEDS: acetaminophen 500 mg Tablet 1000 MG PO (08:21)
[2024-10-12] MEDS: sodium chloride 0.9% 250 ML 75 ML IV (08:21)
[2024-10-12] MEDS: diphenhydrAMINE 50 mg/mL SDV 1mL 25 MG IVP (08:23)
[2024-10-12] MEDS: methylPREDNISolone sod succ 125 mg/2 mL INJ IVP (08:27)
[2024-10-12 08:31] VITALS: BP 109/75; PULSE 63; TEMP 36.2; O2SAT 99
[2024-10-12] MEDS: ocrelizumab 600 MG in sodium chloride 0.9% 500 ML 100 MG IV (08:51)
[2024-10-12 09:15] VITALS: BP 112/79; PULSE 60; RESP 16; TEMP 35.9; O2SAT 98
[2024-10-12 09:30] VITALS: BP 118/78; PULSE 66; RESP 16; TEMP 35.6; O2SAT 99
[2024-10-12 11:20] VITALS: BP 108/63; PULSE 82; RESP 17; TEMP 36.8; O2SAT 99
== END 2024-10-12 23:59 | disposition home or self-care (01) ==
PROVIDERS: PCP Internal Medicine; Visit Provider Specialist
DX: G35 Multiple sclerosis (principal); Z79.899 Other long term (current) drug therapy
CPT/HCPCS: 96375; 96413; 96415; A4222; J1200; J2350; J2919; J7040; J7050; J9999

== ENCOUNTER 2025-04-10 07:09 | Oncology outpatient (recurring) (ONCR) | payer MEDICARE, MEDICAID, SELFPAY ==
[2025-04-10 08:08] VITALS: BP 116/78; PULSE 72; RESP 16; TEMP 36.1; O2SAT 98
[2025-04-10] MEDS: diphenhydrAMINE 50 mg/mL SDV 1mL 25 MG IVP (08:25)
[2025-04-10] MEDS: methylPREDNISolone sod succ 125 mg/2 mL INJ IVP (08:29)
[2025-04-10 10:35] VITALS: BP 117/73; PULSE 97; RESP 16; TEMP 497.7; TEMP 928; O2SAT 96
[2025-04-10 11:52] VITALS: BP 100/67; PULSE 88; RESP 16; TEMP 36.6
== END 2025-04-10 23:59 | disposition home or self-care (01) ==
PROVIDERS: PCP Internal Medicine; Visit Provider Specialist
DX: Z79.899 Other long term (current) drug therapy (principal)
CPT/HCPCS: 96375; 96413; 96415; A4222; J1200; J2350; J2919; J7040; J7050; J9999